=== PATIENT | female | born 1935 | race Caucasian/White ===

== ENCOUNTER 2023-07-31 14:12 | Day surgery (SDC) | payer MEDICARE, OTHER ==
[2023-07-31] MEDS ORDERED: Depo-Medrol 40 MG/ML IM ONE (14:13)
[2023-07-31] MEDS ORDERED: XYLOCAINE-MPF 1% 5ML SDV IJ ONE (14:13)
[2023-07-31] MEDS ORDERED: Sodium Chloride 0.9(Preservative Free) 10 ML IJ ONE (14:13)
[2023-07-31] MEDS ORDERED: MORPHINE SULFATE 2 MG INJ ONE (16:47)
[2023-07-31] MEDS ORDERED: Lactated Ringers 1,000 ML IV ONE (17:00)
--- NOTE | 2023-07-31 17:15 | XRAY ---
Indication: Lumbar YAHAIRA. Intraoperative fluoroscopy provided for 18 seconds. 2 digital spot image submitted for interpretation demonstrates posterior needle tip projecting posterior to lumbosacral junction. Small amount of contrast injected for needle tip placement. Correlate with intraoperative findings/report.
--- NOTE | 2023-07-31 17:23 | XRAY ---
18 seconds of fluoroscopy was used in surgery for a lumbar YAHAIRA.
== END 2023-07-31 17:10 | disposition home or self-care (01) ==
LOC: LAB 14:12 → SDC 14:12
PROVIDERS: ATTEND Psychiatry & Neurology Pain Medicine
DX: M54.16 Radiculopathy, lumbar region (principal)
CPT/HCPCS: 62323; 72100; 77003; J1030; J2270; Q9966

== ENCOUNTER 2023-11-06 12:46 | Day surgery (SDC) | payer MEDICARE ==
[2023-11-06] MEDS ORDERED: LIDOCAINE HCL 1% 50 MG/5 ML VL PF IJ ONE (12:47)
[2023-11-06] MEDS ORDERED: Depo-Medrol 40 MG/ML IM ONE (12:47)
[2023-11-06] MEDS ORDERED: Sodium Chloride 0.9(Preservative Free) 10 ML IJ ONE (12:47)
[2023-11-06] MEDS ORDERED: Lactated Ringers 1,000 ML IV ONE (14:22)
[2023-11-06] MEDS ORDERED: DIPRIVAN 200 MG/20 ML IV ONE (14:33)
[2023-11-06] MEDS ORDERED: MORPHINE SULFATE 2 MG INJ ONE ×2 (15:03→15:51)
--- NOTE | 2023-11-06 16:32 | XRAY ---
Indication: Lumbar YAHAIRA. Intraoperative fluoroscopy provided for 39 seconds. 2 digital spot image submitted for interpretation demonstrates posterior needle tip projecting posterior to last lumbar segment. Small amount of contrast injected for needle tip placement. Correlate with intraoperative findings/report.
--- NOTE | 2023-11-06 16:46 | XRAY ---
39 seconds of fluoroscopy was used in surgery for a lumbar YAHAIRA.
== END 2023-11-06 16:15 | disposition home or self-care (01) ==
LOC: SDC-PAIN 12:46
PROVIDERS: ATTEND Psychiatry & Neurology Pain Medicine
DX: M54.16 Radiculopathy, lumbar region (principal)
CPT/HCPCS: 62323; 72100; 77003; J1030; J2001; J2270; J2704; Q9966

== ENCOUNTER 2024-03-26 10:32 | Day surgery (SDC) | payer MEDICARE ==
[2024-03-26] MEDS ORDERED: Sodium Chloride 0.9(Preservative Free) 10 ML IJ ONE (10:33)
[2024-03-26] MEDS ORDERED: Depo-Medrol 40 MG/ML IM ONE (10:33)
[2024-03-26] MEDS ORDERED: DIPRIVAN 200 MG/20 ML IV ONE (12:18)
[2024-03-26] MEDS ORDERED: Lactated Ringers 1,000 ML IV ONE (13:24)
--- NOTE | 2024-03-26 13:53 | XRAY ---
Indication: Caudal YAHAIRA. Intraoperative fluoroscopy provided for 35 seconds. 4 digital spot image submitted for interpretation demonstrates caudal needle tip projecting mid sacrum. Small amount of contrast injected for needle tip placement. Correlate with intraoperative findings/report.
--- NOTE | 2024-03-26 13:55 | XRAY ---
35 seconds of fluoroscopy was used in surgery for a caudal YAHAIRA.
== END 2024-03-26 12:55 | disposition home or self-care (01) ==
LOC: SDC-PAIN 10:32
PROVIDERS: ATTEND Psychiatry & Neurology Pain Medicine
DX: M54.16 Radiculopathy, lumbar region (principal)
CPT/HCPCS: 62323; 72220; 77003; J2704

== ENCOUNTER 2024-05-27 10:19 | Day surgery (SDC) | payer MEDICARE ==
[2024-05-27] MEDS ORDERED: Xylocaine-Mpf 2% 5 Ml Vial IJ ONE (10:20)
[2024-05-27] MEDS ORDERED: Depo-Medrol 40 MG/ML IM ONE (10:20)
[2024-05-27] MEDS ORDERED: DIPRIVAN 200 MG/20 ML IV ONE (11:47)
[2024-05-27] MEDS ORDERED: Xylocaine-Mpf 2% 5 Ml Vial ONE (11:49)
[2024-05-27] MEDS ORDERED: Lactated Ringers 1,000 ML IV ONE (12:47)
--- NOTE | 2024-05-27 14:59 | XRAY ---
Indication: Bilateral L4-S1 MBB. Intraoperative fluoroscopy provided for 13 seconds. Single digital spot image submitted for interpretation demonstrates posterior needle tips projecting over the expected left and right L4-S1 nerve roots. Correlate with intraoperative findings/report.
--- NOTE | 2024-05-27 16:56 | XRAY ---
13 seconds of fluoroscopy was used in surgery for a bilateral L4-S1 MBB.
== END 2024-05-27 12:26 | disposition home or self-care (01) ==
LOC: SDC-PAIN 10:19
PROVIDERS: ATTEND Psychiatry & Neurology Pain Medicine
DX: M47.816 Spondylosis without myelopathy or radiculopathy, lumbar region (principal)
CPT/HCPCS: 64493; 64494; 72020; 77002; J2704

== ENCOUNTER 2024-06-24 14:35 | Day surgery (SDC) | payer MEDICARE ==
[2024-06-24] MEDS ORDERED: BUPIVACAINE 0.5% VIAL IJ ONE (14:36)
[2024-06-24] MEDS ORDERED: Depo-Medrol 40 MG/ML IM ONE (14:36)
[2024-06-24] MEDS ORDERED: DIPRIVAN 200 MG/20 ML IV ONE (16:15)
--- NOTE | 2024-06-24 17:20 | XRAY ---
Indication: Bilateral L4-S1 MBB. Intraoperative fluoroscopy provided for 10 seconds. Single digital spot image submitted for interpretation demonstrates posterior needle tips projecting over the expected left and right L4-S1 nerve roots. Correlate with intraoperative findings/report.
--- NOTE | 2024-06-25 08:47 | XRAY ---
10 seconds of fluoroscopy was used in surgery for a bilateral L4-S1 MBB.
== END 2024-06-24 16:52 | disposition home or self-care (01) ==
LOC: SDC-PAIN 14:35
PROVIDERS: ATTEND Psychiatry & Neurology Pain Medicine
DX: M47.816 Spondylosis without myelopathy or radiculopathy, lumbar region (principal)
CPT/HCPCS: 72020; 77002; J2704

== ENCOUNTER 2024-07-29 11:08 | Day surgery (SDC) | payer MEDICARE ==
[2024-07-29] MEDS ORDERED: Depo-Medrol 40 MG/ML IM ONE (11:09)
[2024-07-29] MEDS ORDERED: BUPIVACAINE 0.5% VIAL IJ ONE (11:09)
[2024-07-29] MEDS ORDERED: LIDOCAINE HCL 1% AMPUL 5 ML IJ ONE (11:09)
[2024-07-29] MEDS ORDERED: DIPRIVAN 200 MG/20 ML IV ONE (13:02)
--- NOTE | 2024-07-29 13:58 | XRAY ---
Indication: Right L4-S1 RFA. Intraoperative fluoroscopy provided for 15 seconds. 3 digital spot image submitted for interpretation demonstrates posterior needle tips projecting over expected right L4-S1 nerve roots. Correlate with intraoperative findings/report.
--- NOTE | 2024-07-29 14:00 | XRAY ---
15 seconds of fluoroscopy was used in surgery for a right L4-S1 RFA.
== END 2024-07-29 13:42 | disposition home or self-care (01) ==
LOC: SDC-PAIN 11:08
PROVIDERS: ATTEND Psychiatry & Neurology Pain Medicine
DX: M47.816 Spondylosis without myelopathy or radiculopathy, lumbar region (principal)
CPT/HCPCS: 64635; 64636; 72100; 77002; 99100; J2704

== ENCOUNTER 2024-07-30 10:24 | Day surgery (SDC) | payer MEDICARE ==
[2024-07-30] MEDS ORDERED: LIDOCAINE HCL 1% AMPUL 5 ML IJ ONE (10:25)
[2024-07-30] MEDS ORDERED: Depo-Medrol 40 MG/ML IM ONE (10:25)
[2024-07-30] MEDS ORDERED: BUPIVACAINE 0.5% VIAL IJ ONE (10:25)
[2024-07-30] MEDS ORDERED: DIPRIVAN 200 MG/20 ML IV ONE (11:50)
[2024-07-30] MEDS ORDERED: Xylocaine-Mpf 2% 5 Ml Vial ONE (11:55)
--- NOTE | 2024-07-30 13:21 | XRAY ---
Indication: Left L4-S1 RFA. Intraoperative fluoroscopy provided for 18 seconds. 2 digital spot image submitted for interpretation demonstrates posterior needle tips projecting over the expected left L4-S1 nerve roots. Correlate with intraoperative findings/report.
--- NOTE | 2024-07-30 13:23 | XRAY ---
18 seconds of fluoroscopy was used in surgery for a left L4-S1 RFA.
== END 2024-07-30 12:30 | disposition home or self-care (01) ==
LOC: SDC-PAIN 10:24
PROVIDERS: ATTEND Psychiatry & Neurology Pain Medicine
DX: M47.817 Spondylosis without myelopathy or radiculopathy, lumbosacral region (principal)
CPT/HCPCS: 64635; 64636; 72100; 77002; 99100; J2704

== ENCOUNTER 2024-12-30 13:29 | Day surgery (SDC) | payer MEDICARE ==
[2024-12-30] MEDS ORDERED: Sodium Chloride 0.9(Preservative Free) 10 ML IJ ONE (13:30)
[2024-12-30] MEDS ORDERED: methylPREDNISolone acetate IM ONE (13:30)
[2024-12-30] MEDS ORDERED: LIDOCAINE HCL 1% 50 MG/5 ML VL IJ ONE (13:30)
[2024-12-30] MEDS ORDERED: dexAMETHasone sodium phosphate IJ ONE (13:30)
[2024-12-30] MEDS ORDERED: propofoL IV ONE (16:30)
[2024-12-30] MEDS ORDERED: Lactated Ringers 1,000 ML IV ONE (16:38)
--- NOTE | 2024-12-30 21:12 | XRAY ---
Indication: Caudal YAHAIRA. Intraoperative fluoroscopy provided for 12 seconds. 2 digital spot image submitted for interpretation demonstrates caudal needle tip projecting mid sacrum. Small amount of contrast injected for needle tip placement. Correlate with intraoperative findings/report.
--- NOTE | 2024-12-30 21:16 | XRAY ---
Indication: Bilateral piriformis injection. Intraoperative fluoroscopy provided for 29 seconds. 2 digital spot image submitted for interpretation demonstrates posterior needle tip projecting over left and right piriformis. Small amount of contrast injected for needle tip placement. Correlate with intraoperative findings/report. Incidental left hip arthroplasty
--- NOTE | 2025-01-01 10:12 | XRAY ---
29 seconds of fluoroscopy was used in surgery for a bilateral piriformis injection.
--- NOTE | 2025-01-01 10:13 | XRAY ---
12 seconds of fluoroscopy was used in surgery for a caudal YAHAIRA.
== END 2024-12-30 17:04 | disposition home or self-care (01) ==
LOC: SDC-PAIN 13:29
PROVIDERS: ATTEND Psychiatry & Neurology Pain Medicine
DX: M54.16 Radiculopathy, lumbar region (principal); M79.18 Myalgia, other site
CPT/HCPCS: 20552; 62323; 72170; 72220; 77002; 99100; J1010; J1100; J2704; Q9966